=== PATIENT | male | born 1965 | race Caucasian/White ===

== ENCOUNTER 2020-06-08 10:00 | Emergency (ER) | payer MEDICARE, OTHER ==
[~2020-06-08 10:00] MED LIST: COZAAR100 MG PO; HUMALOG 75100 UNIT/M SC; LINZESS145 MCG PO; METFORMIN HCL500 MG PO; NEURONTIN100 MG PO; PRAVACHOL40 MG PO; PRILOSEC20 MG PO; QUETIAPINE FUM400 M1 PO; TRAMADOL HCL50 MG PO; TRAZODONE 100M100 MG PO; VOLTAREN **OUT75 MG PO; ZOFRAN4 MG PO; ZYRTEC10 MG PO
[2020-06-08 10:46] LABS: BASOPHIL 0.5 % (0-2); EOSINOPHIL 1.3 % (0-5); HCT 36.1 % (42.0-52.0); HGB 11.8 g/dl (13.2-18.0); LYMPHOCYTE 11.7 % (15-48); MCH 30.5 pg (25.0-31.0); MCHC 32.7 g/dL (32.0-36.0); MCV 93.3 fL (78.0-100.0); MONOCYTE 10.6 % (0-12); MPV 10.5 fL (6.0-9.5); NEUTROPHIL 75.3 % (41-80); NRBC 0; PLT 220 K/uL (150-400); RBC 3.87 M/uL (4.70-6.00); RDW 12.7 % (11.5-14.0); WBC 12.5 K/uL (4.0-10.5)
[2020-06-08 10:52] LABS: INR 1.01 (0.9-1.2); PROTHROMBIN TIME 12.6 SECONDS (11.4-13.6)
[2020-06-08 10:53] LABS: PTT 34.8 SECONDS (22.2-34.7)
[2020-06-08 11:11] LABS: ALBUMIN 3.7 g/dL (3.4-5.0); BILIRUBIN - TOTAL 0.3 mg/dL (0.2-1.0); BUN/CREAT RATIO (CALC) 33.3 RATIO; CREATININE 1.32 mg/dL (0.67-1.17); GLOBULIN (CALCULATION) 3.1 g/dL; POTASSIUM 5.4 mmol/L (3.5-5.1); TOTAL PROTEIN 6.8 g/dL (6.4-8.2)
[2020-06-08 11:54] LABS: BILIRUBIN NEGATIVE (NEGATIVE); BLOOD NEGATIVE Ery/uL (NEGATIVE); CLARITY CLEAR (CLEAR); COLOR YELLOW (YELLOW); GLUCOSE (U) 3+ mg/dL (NORMAL); LEUKOCYTES NEGATIVE Leu/uL (NEGATIVE); NITRITE NEGATIVE (NEGATIVE); PROTEIN NEGATIVE (NEGATIVE); SPECIFIC GRAVITY 1.015 (1.001-1.030); UROBILINOGEN 0.2 mg/dL (0.2-1.0)
[2020-06-08] MEDS ORDERED: NORCO 5-325 TA1 EACH PO (12:30)
== END 2020-06-08 13:00 | disposition home or self-care (01) ==
LOC: FER 10:00
PROVIDERS: Emergency Medicine
DX: S16.1XXA Strain of muscle, fascia and tendon at neck level, initial encounter (principal); E87.5 Hyperkalemia; I12.9 Hypertensive chronic kidney disease with stage 1 through stage 4 chronic kidney disease, or unspecified chronic kidney disease; E11.22 Type 2 diabetes mellitus with diabetic chronic kidney disease; N18.9 Chronic kidney disease, unspecified; R42 Dizziness and giddiness; J44.9 Chronic obstructive pulmonary disease, unspecified; X58.XXXA Exposure to other specified factors, initial encounter; Z87.19 Personal history of other diseases of the digestive system
CPT/HCPCS: 36415; 70450; 71045; 80053; 81003; 84484; 85025; 85610; 85730; 87088; 93005; J1170; J2270; J2405

== ENCOUNTER 2020-12-03 19:12 | Emergency (ER) | payer OTHER ==
[~2020-12-03] VITALS: Ht 152.4 cm; Wt 49.9 kg
[~2020-12-03 19:12] MED LIST changes: +NORCO 5-325 TA1 EACH PO
[2020-12-03 21:23] LABS: ALBUMIN 3.1 g/dL (3.4-5.0); BILIRUBIN - TOTAL 0.4 mg/dL (0.2-1.0); BUN/CREAT RATIO (CALC) 24.5 RATIO; CREATININE 1.1 mg/dL (0.67-1.17); GLOBULIN (CALCULATION) 3.9 g/dL; POTASSIUM 4.5 mmol/L (3.5-5.1)
[2020-12-03 21:29] LABS: BASOPHIL 0.2 % (0-2); EOSINOPHIL 0.1 % (0-5); HCT 33.7 % (42.0-52.0); HGB 11.4 g/dl (13.2-18.0); LYMPHOCYTE 9.1 % (15-48); MCH 29.6 pg (25.0-31.0); MCHC 33.8 g/dL (32.0-36.0); MCV 87.5 fL (78.0-100.0); MONOCYTE 8.6 % (0-12); MPV 11.1 fL (6.0-9.5); NEUTROPHIL 81.4 % (41-80); NRBC 0; PLT 179 K/uL (150-400); RBC 3.85 M/uL (4.70-6.00); RDW 11.9 % (11.5-14.0); WBC 20.5 K/uL (4.0-10.5)
[2020-12-03 22:38] LABS: CORONAVIRUS 2019 SARS-COV-2 NEGATIVE (NEGATIVE); INFLUENZA A NAA NEGATIVE (NEGATIVE)
[2020-12-03 23:34] LABS: BILIRUBIN NEGATIVE (NEGATIVE); BLOOD NEGATIVE Ery/uL (NEGATIVE); CLARITY CLEAR (CLEAR); COLOR YELLOW (YELLOW); GLUCOSE (U) 3+ mg/dL (NORMAL); LEUKOCYTES NEGATIVE Leu/uL (NEGATIVE); NITRITE NEGATIVE (NEGATIVE); PROTEIN 1+ mg/dL (NEGATIVE); SPECIFIC GRAVITY 1.015 (1.001-1.030)
[2020-12-03 23:41] LABS: SQUAMOUS EPITHELIAL CELLS RARE
[2020-12-04] MEDS ORDERED: TESSALON PERLE100 MG PO (00:40)
[2020-12-04] MEDS ORDERED: CEFDINIR300 MG PO (00:40)
[2020-12-04] MEDS ORDERED: BROMFED DM COU473 ML PO (00:40)
== END 2020-12-04 00:50 | disposition home or self-care (01) ==
LOC: FER 19:12
PROVIDERS: Emergency Medicine Emergency Medical Services; Nurse Practitioner Family
DX: J44.0 Chronic obstructive pulmonary disease with (acute) lower respiratory infection (principal); J18.9 Pneumonia, unspecified organism; H66.92 Otitis media, unspecified, left ear; Z20.822 Contact with and (suspected) exposure to COVID-19; E11.9 Type 2 diabetes mellitus without complications; Z90.49 Acquired absence of other specified parts of digestive tract
CPT/HCPCS: 36415; 71045; 80053; 81001; 83605; 84145; 85025; 94640; 94664; J1885; J7030; U0002

== ENCOUNTER 2021-05-23 11:42 | Emergency (ER) | payer MEDICARE, OTHER ==
[~2021-05-23 11:42] MED LIST changes: +BROMFED DM COU473 ML PO; +CEFDINIR300 MG PO; +TESSALON PERLE100 MG PO
[2021-05-23 13:05] LABS: BASOPHIL 0.3 % (0-2); EOSINOPHIL 0.3 % (0-5); HCT 30.5 % (42.0-52.0); HGB 10.2 g/dl (13.2-18.0); LYMPHOCYTE 5.1 % (15-48); MCH 31.9 pg (25.0-31.0); MCHC 33.4 g/dL (32.0-36.0); MCV 95.3 fL (78.0-100.0); MONOCYTE 7.1 % (0-12); MPV 10.6 fL (6.0-9.5); NEUTROPHIL 86.2 % (41-80); NRBC 0; PLT 296 K/uL (150-400); RDW 13.3 % (11.5-14.0); WBC 21.6 K/uL (4.0-10.5)
[2021-05-23 13:08] LABS: INR 1.09 (0.9-1.2); PROTHROMBIN TIME 13.5 SECONDS (11.8-13.4)
[2021-05-23 13:09] LABS: PTT 35.4 SECONDS (24.4-34.7)
[2021-05-23 13:15] LABS: ALBUMIN 3.3 g/dL (3.4-5.0); BILIRUBIN - TOTAL 0.6 mg/dL (0.2-1.0); BUN/CREAT RATIO (CALC) 19.6 RATIO; C-REACTIVE PROTEIN 11.5 mg/dL (<=0.90); CREATININE 1.48 mg/dL (0.67-1.17); GLOBULIN (CALCULATION) 4.2 g/dL; POTASSIUM 4.8 mmol/L (3.5-5.1); TOTAL PROTEIN 7.5 g/dL (6.4-8.2)
[2021-05-23 13:23] LABS: LACTIC ACID 0.8 mmol/L (0.4-1.9)
[2021-05-23 17:58] LABS: BASOPHIL 0.3 % (0-2); EOSINOPHIL 0.4 % (0-5); HCT 27.2 % (42.0-52.0); HGB 9.4 g/dl (13.2-18.0); LYMPHOCYTE 7.9 % (15-48); MCH 32.6 pg (25.0-31.0); MCHC 34.6 g/dL (32.0-36.0); MCV 94.4 fL (78.0-100.0); MONOCYTE 7.9 % (0-12); MPV 10.2 fL (6.0-9.5); NEUTROPHIL 82.7 % (41-80); NRBC 0; PLT 267 K/uL (150-400); RBC 2.88 M/uL (4.70-6.00); RDW 13.2 % (11.5-14.0); WBC 19.5 K/uL (4.0-10.5)
[2021-05-23 18:06] LABS: TOTAL CELL COUNT 100
[2021-05-23 18:08] LABS: BAND 6 % (0-10); BASOPHIL(M) 0 % (0-2); EOSINOPHIL(M) 0 % (0-5); LYMPHOCYTE(M) 9 % (15-48); MONOCYTE(M) 10 % (0-12); NEUTROPHILS(M) 75 % (41-80); PLATELET ESTIMATE NORMAL; PLATELET MORPHOLOGY NORMAL
[2021-05-23 18:36] LABS: BILIRUBIN NEGATIVE (NEGATIVE); BLOOD NEGATIVE Ery/uL (NEGATIVE); CLARITY CLEAR (CLEAR); COLOR YELLOW (YELLOW); GLUCOSE (U) NORMAL (NORMAL); LEUKOCYTES NEGATIVE Leu/uL (NEGATIVE); NITRITE NEGATIVE (NEGATIVE); PROTEIN TRACE (LOW) mg/dL (NEGATIVE); SPECIFIC GRAVITY >=1.030 (1.001-1.030); UROBILINOGEN 0.2 mg/dL (0.2-1.0)
[2021-05-23] MEDS ORDERED: SENNA PLUS TAB1 EACH PO (19:00)
[2021-05-23] MEDS ORDERED: MIRALAX 238GM238 GM PO (19:00)
== END 2021-05-23 19:59 | disposition home or self-care (01) ==
LOC: FER 11:42
PROVIDERS: Emergency Medicine
DX: K59.00 Constipation, unspecified (principal); R10.32 Left lower quadrant pain; E11.22 Type 2 diabetes mellitus with diabetic chronic kidney disease; N18.9 Chronic kidney disease, unspecified; J44.9 Chronic obstructive pulmonary disease, unspecified; Z79.4 Long term (current) use of insulin
CPT/HCPCS: 36415; 80053; 81003; 82271; 83605; 83690; 84145; 85025; 85610; 85730; 86140; 87040; 93005; J1170; J2405